=== PATIENT | female | born 1940 | race Two or more races ===

== ENCOUNTER 2022-07-08 10:35 | Outpatient (CLI) | payer MEDICARE ==
[2022-07-08] MEDS ORDERED: TRIAMCINOLONE ACETONIDE 0.1% CR 15 GM TUBE TP ONE (11:57)
[2022-07-08 12:15] LABS: BASOPHILS % (AUTO) 0.4 % (0.0-2.0); EOSINOPHILS % (AUTO) 2.9 % (0.0-6.0); HEMATOCRIT 35 % (33-45); HEMOGLOBIN 11.3 g/dL (11.5-14.8); LYMPHOCYTES # (AUTO) 1.6 K/uL (0.8-4.8); LYMPHOCYTES % (AUTO) 25.3 % (20.0-44.0); MEAN CORPUSCULAR HGB CONC 32 g/dl (31.0-36.0); MEAN CORPUSCULAR VOLUME 92 fL (82-100); MONOCYTES # (AUTO) 0.8 K/uL (0.1-1.30); NEUTROPHILS # (AUTO) 3.8 K/uL (1.8-8.9); NEUTROPHILS % (AUTO) 59.4 % (43.0-81.0); PLATELET COUNT (AUTO) 174 K/uL (150-450); RED BLOOD CELL COUNT(AUTO) 3.77 MIL/uL (4.0-5.2); WHITE BLOOD COUNT (AUTO) 6.3 K/uL (4.3-11.0)
== END 2022-07-08 23:59 | disposition home or self-care (01) ==
LOC: WOU 10:35
PROVIDERS: ATTEND Podiatrist Foot & Ankle Surgery
DX: I89.0 Lymphedema, not elsewhere classified (principal); I87.2 Venous insufficiency (chronic) (peripheral); L97.221 Non-pressure chronic ulcer of left calf limited to breakdown of skin; R60.0 Localized edema; L30.9 Dermatitis, unspecified; Z86.006 Personal history of melanoma in-situ; I10 Essential (primary) hypertension; E78.5 Hyperlipidemia, unspecified
CPT/HCPCS: 84145; 85025; 85652; 36415; 86140; G0463

== ENCOUNTER 2022-07-28 13:48 | Outpatient (CLI) | payer MEDICARE | END 2022-07-28 23:59 | disposition home or self-care (01) | LOC: MRI 13:48 | PROVIDERS: ATTEND Podiatrist Foot & Ankle Surgery | DX: R60.9 Edema, unspecified (principal) | CPT/HCPCS: 73718-TC ==

== ENCOUNTER → 2022-09-20 | Outpatient (CLI) | payer MEDICARE, OTHER | END | disposition home or self-care (01) | LOC: WOU 11:00 | PROVIDERS: ATTEND Podiatrist Foot & Ankle Surgery | DX: I87.2 Venous insufficiency (chronic) (peripheral) (principal); L97.221 Non-pressure chronic ulcer of left calf limited to breakdown of skin; L30.9 Dermatitis, unspecified; I89.0 Lymphedema, not elsewhere classified; R60.0 Localized edema; Z86.006 Personal history of melanoma in-situ; Z79.82 Long term (current) use of aspirin | CPT/HCPCS: G0463 ==